=== PATIENT | female | born 1980 | race Caucasian/White ===

== ENCOUNTER 2021-04-18 11:00 | Outpatient (CLI) | payer OTHER, SELFPAY ==
[2021-04-18 13:22] LABS: SARS-CoV-2 RNA PCR Negative (Negative)
== END 2021-04-18 11:01 | disposition home or self-care (01) ==
LOC: CHSLAB 11:07
PROVIDERS: PCP Family Medicine; Visit Provider Internal Medicine
DX: Z20.822 Contact with and (suspected) exposure to COVID-19 (principal)
CPT/HCPCS: C9803; U0003; U0005